=== PATIENT | male | born 1930 | race Caucasian/White ===

== ENCOUNTER 2016-08-05 19:40 | Emergency (ER) | payer OTHER ==
[~2016-08-05 19:40] MED LIST: CARL PO; CLINDAMYCIN HC300 MG PO; DILTIAZEM HCL180 MG PO; LAC PO; LEVAQUIN500 MG PO; PROTONIX40 MG PO
[2016-08-05 20:47] LABS: BASOPHIL % 0.3 % (0-2); PLATELET COUNT 255 x10^3mcL (130-400); RED CELL DISTRIBUTION WIDTH 13.4 % (11.5-14.5)
[2016-08-05 20:51] LABS: CALCIUM 8.2 mg/dL (8.5-10.1); CARBON DIOXIDE 28.1 mmol/L (21-32); CHLORIDE SERUM 105 mmol/L (98-107); CREATININE SERUM 0.9 mg/dL (0.7-1.3); GLUCOSE SERUM 89 mg/dL (74-106); POTASSIUM SERUM 3.8 mmol/L (3.5-5.1); SODIUM SERUM 141 mmol/L (136-145)
[2016-08-05 20:56] LABS: ALKALINE PHOSPHATASE 79 U/L (46-116); ALT/SGPT 9 U/L (16-63); AST/SGOT 12 U/L (15-37); BILIRUBIN TOTAL 0.3 mg/dL (0.20-1.00); TOTAL PROTEIN, SERUM 6.6 g/dL (6.4-8.2)
[2016-08-05 20:57] LABS: ALBUMIN 2.8 g/dL (3.4-5.0)
[2016-08-05 22:24] LABS: microscopic required? YES; urine erythrocyte 2+ (NEGATIVE)
[2016-08-05 22:42] VITALS: BP 134/77
== END 2016-08-05 22:42 | disposition home or self-care (01) ==
LOC: ED 19:40
PROVIDERS: Emergency Medicine
DX: E86.0 Dehydration (principal); G30.9 Alzheimer's disease, unspecified; F02.80 Dementia in other diseases classified elsewhere, unspecified severity, without behavioral disturbance, psychotic disturbance, mood disturbance, and anxiety; I48.91 Unspecified atrial fibrillation; R35.0 Frequency of micturition
CPT/HCPCS: 83880; 87804

== ENCOUNTER 2016-12-14 15:20 | Emergency (ER) | payer MEDICAID, OTHER ==
[2016-12-14 16:38] LABS: BASOPHIL % 0.1 % (0-2); PLATELET COUNT 264 x10^3mcL (130-400)
[2016-12-14 16:45] LABS: RED CELL DISTRIBUTION WIDTH 15.2 % (11.5-14.5)
[2016-12-14 17:02] LABS: ALBUMIN 3.4 g/dL (3.4-5.0); ALKALINE PHOSPHATASE 93 U/L (46-116); ALT/SGPT 14 U/L (16-63); AMYLASE 62 U/L (25-115); AST/SGOT 17 U/L (15-37); BILIRUBIN TOTAL 0.57 mg/dL (0.20-1.00); CALCIUM 8.9 mg/dL (8.5-10.1); CHLORIDE SERUM 105 mmol/L (98-107); CHOLESTEROL 174 mg/dL (<200); GLUCOSE SERUM 87 mg/dL (74-106); HDL CHOLESTEROL 41 mg/dL (40-60); LIPASE 96 IU/L (73-393); POTASSIUM SERUM 3.7 mmol/L (3.5-5.1); SODIUM SERUM 143 mmol/L (136-145); T4(THYROXINE) 9.1 ug/dL (4.7-13.3); TOTAL PROTEIN, SERUM 7.5 g/dL (6.4-8.2)
[2016-12-14 17:46] LABS: microscopic required? NO
[2016-12-14 17:57] LABS: urine erythrocyte NEGATIVE (NEGATIVE)
[2016-12-14 18:09] LABS: AMPHETAMINE QUAL UR NONE DETECTED (NEG <=1000)
[2016-12-14 19:50] VITALS: BP 150/86
== END 2016-12-14 19:50 | disposition home or self-care (01) ==
LOC: ED 15:20
PROVIDERS: Emergency Medicine
DX: R19.7 Diarrhea, unspecified (principal); K56.7 Ileus, unspecified; R64 Cachexia; F03.90 Unspecified dementia, unspecified severity, without behavioral disturbance, psychotic disturbance, mood disturbance, and anxiety; I48.91 Unspecified atrial fibrillation
CPT/HCPCS: 83880; J7030

== ENCOUNTER 2017-09-08 15:56 | Emergency (ER) | payer OTHER ==
[~2017-09-08] VITALS: Ht 172.7 cm; Wt 65.8 kg
[2017-09-08 15:59] VITALS: Ht 172.7 cm; Wt 65.8 kg
[2017-09-08 19:06] VITALS: BP 168/87
== END 2017-09-08 19:06 | disposition home or self-care (01) ==
LOC: ED 15:56
DX: S01.01XA Laceration without foreign body of scalp, initial encounter (principal); W19.XXXA Unspecified fall, initial encounter; Y93.89 Activity, other specified; Y92.89 Other specified places as the place of occurrence of the external cause; Y99.8 Other external cause status
CPT/HCPCS: J2001

== ENCOUNTER 2017-09-14 13:35 | Inpatient (IN) | payer OTHER ==
[~2017-09-14] VITALS: Ht 167.6 cm; Wt 48.1 kg
[2017-09-14 13:41] VITALS: Ht 167.6 cm; Wt 48.1 kg
[2017-09-14 14:51] LABS: UA SPECIFIC GRAVITY 1.015 (1.005-1.035); microscopic required? YES; urine erythrocyte 3+ (NEGATIVE)
[2017-09-14 14:59] LABS: BASOPHIL % 0.3 % (0-2); PLATELET COUNT 379 x10^3mcL (130-400); RED CELL DISTRIBUTION WIDTH 14.1 % (11.5-14.5)
[2017-09-14 15:12] LABS: CALCIUM 8.6 mg/dL (8.5-10.1); CARBON DIOXIDE 30.9 mmol/L (21-32); CHLORIDE SERUM 101 mmol/L (98-107); CREATININE SERUM 1.5 mg/dL (0.7-1.3); GLUCOSE SERUM 133 mg/dL (74-106); POTASSIUM SERUM 3.7 mmol/L (3.5-5.1); SODIUM SERUM 139 mmol/L (136-145)
[2017-09-14 15:27] LABS: ALKALINE PHOSPHATASE 121 U/L (46-116); ALT/SGPT 17 U/L (16-63); AST/SGOT 20 U/L (15-37); BILIRUBIN TOTAL 0.4 mg/dL (0.20-1.00); TOTAL PROTEIN, SERUM 7.6 g/dL (6.4-8.2)
[2017-09-14 15:28] LABS: ALBUMIN 3.2 g/dL (3.4-5.0)
[2017-09-14 15:29] LABS: CK-MB 2.3 ng/mL (0-3.6)
[2017-09-14 17:18] LABS: CHOLESTEROL/HDL RATIO 3.6; MAGNESIUM 2.1 mg/dL (1.8-2.4); PHOSPHOROUS 3.1 mg/dL (2.5-4.9)
[2017-09-14 17:25] LABS: T3 TOTAL 0.93 ng/mL
[2017-09-14 17:27] LABS: FREE T4 1.09 ng/dL (0.76-1.46); T4(THYROXINE) 7.8 ug/dL (4.7-13.3)
[2017-09-14 18:30] VITALS: BP 194/99
[2017-09-14 21:19] VITALS: BP 115/67
[2017-09-15 07:27] LABS: BASOPHIL % 0.2 % (0-2); PLATELET COUNT 276 x10^3mcL (130-400); RED CELL DISTRIBUTION WIDTH 13.9 % (11.5-14.5)
[2017-09-15 07:43] LABS: CARBON DIOXIDE 26.7 mmol/L (21-32); CHLORIDE SERUM 107 mmol/L (98-107); CREATININE SERUM 1.4 mg/dL (0.7-1.3); GLUCOSE SERUM 71 mg/dL (74-106); MAGNESIUM 2.1 mg/dL (1.8-2.4); PHOSPHOROUS 2.9 mg/dL (2.5-4.9); POTASSIUM SERUM 3.8 mmol/L (3.5-5.1); SODIUM SERUM 140 mmol/L (136-145)
[2017-09-15 08:00] VITALS: BP 153/69
[2017-09-15 18:02] VITALS: BP 155/79
[2017-09-15 19:40] VITALS: BP 141/71
[2017-09-16 05:51] VITALS: BP 91/61
[2017-09-16 08:05] LABS: BASOPHIL % 0.6 % (0-2); PLATELET COUNT 259 x10^3mcL (130-400); RED CELL DISTRIBUTION WIDTH 14.2 % (11.5-14.5)
[2017-09-16 08:16] LABS: CALCIUM 8.1 mg/dL (8.5-10.1); CARBON DIOXIDE 27.2 mmol/L (21-32); CHLORIDE SERUM 106 mmol/L (98-107); CREATININE SERUM 1.4 mg/dL (0.7-1.3); GLUCOSE SERUM 79 mg/dL (74-106); MAGNESIUM 1.8 mg/dL (1.8-2.4); PHOSPHOROUS 2.8 mg/dL (2.5-4.9); SODIUM SERUM 141 mmol/L (136-145)
[2017-09-16 17:58] VITALS: BP 134/71
[2017-09-16 19:48] VITALS: BP 136/69
[2017-09-16 20:52] VITALS: BP 129/69
[2017-09-17 05:57] LABS: BASOPHIL % 0.5 % (0-2); PLATELET COUNT 230 x10^3mcL (130-400); RED CELL DISTRIBUTION WIDTH 13.6 % (11.5-14.5)
[2017-09-17 06:07] LABS: CALCIUM 7.5 mg/dL (8.5-10.1); CARBON DIOXIDE 28.4 mmol/L (21-32); CHLORIDE SERUM 110 mmol/L (98-107); CREATININE SERUM 1.4 mg/dL (0.7-1.3); GLUCOSE SERUM 81 mg/dL (74-106); POTASSIUM SERUM 4.1 mmol/L (3.5-5.1); SODIUM SERUM 142 mmol/L (136-145)
[2017-09-17 06:08] VITALS: BP 120/69
[2017-09-17 10:35] VITALS: BP 121/58
[2017-09-17 22:58] VITALS: BP 115/61
[2017-09-18 06:20] VITALS: BP 121/68
[2017-09-18 06:24] LABS: PLATELET COUNT 279 x10^3mcL (130-400); RED CELL DISTRIBUTION WIDTH 13.8 % (11.5-14.5)
[2017-09-18 06:34] LABS: CARBON DIOXIDE 24.7 mmol/L (21-32); CHLORIDE SERUM 106 mmol/L (98-107); CREATININE SERUM 1.4 mg/dL (0.7-1.3); GLUCOSE SERUM 107 mg/dL (74-106); MAGNESIUM 1.8 mg/dL (1.8-2.4); PHOSPHOROUS 4.2 mg/dL (2.5-4.9); POTASSIUM SERUM 4.5 mmol/L (3.5-5.1); SODIUM SERUM 140 mmol/L (136-145)
[2017-09-18 06:41] LABS: BASOPHIL % 0 % (0-2)
[2017-09-18 08:30] VITALS: BP 122/61
[2017-09-18 13:24] VITALS: BP 122/61
[2017-09-18] MEDS ORDERED: SULFAMETHOXAZOL1 TA3 PO (14:06)
[2017-09-18] MEDS ORDERED: TROSPIUM CHLORI20 MG PO (14:08)
[2017-09-18] MEDS ORDERED: LAC PO (14:09)
[2017-09-18] MEDS ORDERED: APAP/HYDROCODON1 T13 PO (14:09)
== END 2017-09-18 19:55 | DRG 853 ==
LOC: ED 13:35 → DU 16:54 → MU 16:54 → DU 18:14 → MU 09-16 08:45
PROVIDERS: Emergency Medicine; Family Medicine; Urology
PROC: 0TBB8ZZ Excision of Bladder, Via Natural or Artificial Opening Endoscopic (ICD-10-PCS; 2017-09-17)
PROC: 0TCB8ZZ Extirpation of Matter from Bladder, Via Natural or Artificial Opening Endoscopic (ICD-10-PCS; principal; 2017-09-17 19:30)
DX: A41.9 Sepsis, unspecified organism (principal); N17.0 Acute kidney failure with tubular necrosis; E43 Unspecified severe protein-calorie malnutrition; N13.30 Unspecified hydronephrosis; Z68.1 Body mass index [BMI] 19.9 or less, adult; N39.0 Urinary tract infection, site not specified; J98.11 Atelectasis; D49.4 Neoplasm of unspecified behavior of bladder; N32.89 Other specified disorders of bladder; R31.0 Gross hematuria; N40.0 Benign prostatic hyperplasia without lower urinary tract symptoms; I10 Essential (primary) hypertension; I48.0 Paroxysmal atrial fibrillation; E02 Subclinical iodine-deficiency hypothyroidism; E78.5 Hyperlipidemia, unspecified; D64.9 Anemia, unspecified; G30.9 Alzheimer's disease, unspecified; F02.80 Dementia in other diseases classified elsewhere, unspecified severity, without behavioral disturbance, psychotic disturbance, mood disturbance, and anxiety; D69.6 Thrombocytopenia, unspecified; D72.828 Other elevated white blood cell count; F43.0 Acute stress reaction; E87.8 Other disorders of electrolyte and fluid balance, not elsewhere classified; E83.51 Hypocalcemia; K57.90 Diverticulosis of intestine, part unspecified, without perforation or abscess without bleeding; I08.0 Rheumatic disorders of both mitral and aortic valves; N28.1 Cyst of kidney, acquired
CPT/HCPCS: 83880; 84439; 97110-GP; 97116-GP; 97530-GP; J0360; J0690; J1170; J1956; J3010; J7030; Q0092

== ENCOUNTER 2017-10-15 19:21 | Inpatient (IN) | payer OTHER ==
[~2017-10-15] VITALS: Ht 167.6 cm; Wt 49.1 kg
[~2017-10-15 19:21] MED LIST changes: +APAP/HYDROCODON1 T13 PO; +SULFAMETHOXAZOL1 TA3 PO; +TROSPIUM CHLORI20 MG PO
[2017-10-15 19:30] VITALS: Ht 167.6 cm; Wt 49.1 kg
[2017-10-15 21:17] LABS: PLATELET COUNT 415 x10^3mcL (130-400); RED CELL DISTRIBUTION WIDTH 14.7 % (11.5-14.5)
[2017-10-15 21:25] LABS: ALKALINE PHOSPHATASE 141 U/L (46-116); ALT/SGPT 14 U/L (16-63); AST/SGOT 20 U/L (15-37); BILIRUBIN TOTAL 0.6 mg/dL (0.20-1.00); CALCIUM 10.1 mg/dL (8.5-10.1); CARBON DIOXIDE 21.3 mmol/L (21-32); CHLORIDE SERUM 121 mmol/L (98-107); GLUCOSE SERUM 107 mg/dL (74-106); TOTAL PROTEIN, SERUM 7.6 g/dL (6.4-8.2)
[2017-10-15 21:28] LABS: BAND NEUTROPHIL 5 % (0-10); MONOCYTE 5 % (0-7); SEGMENTED NEUTROPHILS 85 % (37-75)
[2017-10-15 21:29] LABS: rbc morphology (normal/abnorm) ABNORMAL (NORMAL)
[2017-10-15 21:30] LABS: PLATELET MORPHOLOGY PLATELETS NORMAL
[2017-10-15 21:32] LABS: CK-MB 4.3 ng/mL (0-3.6)
[2017-10-15 22:02] LABS: ALBUMIN 2.7 g/dL (3.4-5.0)
[2017-10-15 22:06] LABS: CREATININE SERUM 5.9 mg/dL (0.7-1.3); POTASSIUM SERUM 5.6 mmol/L (3.5-5.1); SODIUM SERUM 163 mmol/L (136-145)
[2017-10-15 23:57] LABS: microscopic required? YES; urine erythrocyte 3+ (NEGATIVE)
[2017-10-16 00:01] VITALS: BP 121/83
[2017-10-16 02:01] VITALS: BP 114/54
[2017-10-16 02:16] LABS: CARBON DIOXIDE 24.4 mmol/L (21-32); CHLORIDE SERUM 128 mmol/L (98-107); POTASSIUM SERUM 5.4 mmol/L (3.5-5.1)
[2017-10-16 02:20] LABS: GLUCOSE SERUM 49 mg/dL (74-106); SODIUM SERUM 164 mmol/L (136-145)
[2017-10-16 02:21] LABS: CREATININE SERUM 5.6 mg/dL (0.7-1.3)
[2017-10-16 02:42] LABS: CHOLESTEROL/HDL RATIO 3.9; MAGNESIUM 3.5 mg/dL (1.8-2.4); PHOSPHOROUS 6.3 mg/dL (2.5-4.9)
[2017-10-16 05:26] VITALS: BP 103/54
[2017-10-16 07:31] LABS: CALCIUM 8.9 mg/dL (8.5-10.1); CARBON DIOXIDE 22.1 mmol/L (21-32); CHLORIDE SERUM 127 mmol/L (98-107); GLUCOSE SERUM 92 mg/dL (74-106); POTASSIUM SERUM 4.6 mmol/L (3.5-5.1)
[2017-10-16 07:35] LABS: CREATININE SERUM 5.2 mg/dL (0.7-1.3); SODIUM SERUM 165 mmol/L (136-145)
[2017-10-16 07:45] LABS: FREE T4 0.9 ng/dL (0.76-1.46); FREE THYROXINE INDEX 1.9 ug/dL (1.4-4.5); T4(THYROXINE) 4.7 ug/dL (4.7-13.3)
[2017-10-16 08:37] VITALS: BP 123/55
[2017-10-16 08:54] LABS: T3 TOTAL 0.57 ng/mL
[2017-10-16 09:06] LABS: PLATELET COUNT 340 x10^3mcL (130-400)
[2017-10-16 09:12] LABS: RED CELL DISTRIBUTION WIDTH 15.1 % (11.5-14.5)
[2017-10-16 12:59] LABS: CALCIUM 8.4 mg/dL (8.5-10.1); CARBON DIOXIDE 22.7 mmol/L (21-32); CHLORIDE SERUM 130 mmol/L (98-107); GLUCOSE SERUM 79 mg/dL (74-106); POTASSIUM SERUM 4.7 mmol/L (3.5-5.1)
[2017-10-16 13:06] LABS: SODIUM SERUM 167 mmol/L (136-145)
[2017-10-16 13:14] VITALS: BP 128/70
[2017-10-16 14:29] LABS: BAND NEUTROPHIL 1 % (0-10); MONOCYTE 2 % (0-7); SEGMENTED NEUTROPHILS 91 % (37-75)
[2017-10-16 14:30] LABS: PLATELET MORPHOLOGY N; rbc morphology (normal/abnorm) ABNORMAL (NORMAL)
[2017-10-16 17:06] LABS: CALCIUM 8.6 mg/dL (8.5-10.1); CARBON DIOXIDE 23.7 mmol/L (21-32); CHLORIDE SERUM 129 mmol/L (98-107); GLUCOSE SERUM 103 mg/dL (74-106); POTASSIUM SERUM 4.6 mmol/L (3.5-5.1)
[2017-10-16 17:14] VITALS: BP 80/32
[2017-10-16 17:27] LABS: SODIUM SERUM 166 mmol/L (136-145)
[2017-10-16] MEDS ORDERED: ROC1I IV (17:47)
[2017-10-16] MEDS ORDERED: NOVAPLUS ZOSYN50 M1 IV (17:47)
[2017-10-16] MEDS ORDERED: ZOFI IV (17:48)
[2017-10-16] MEDS ORDERED: LAC PO (17:48)
[2017-10-16] MEDS ORDERED: MOR4I IV (17:48)
[2017-10-17 12:47] VITALS: BP 80/32
== END 2017-10-17 15:02 | disposition hospice, home (50) | DRG 871 ==
LOC: ED 19:21 → DU 22:59
PROVIDERS: Emergency Medicine; Family Medicine; Student in an Organized Health Care Education/Training Program
DX: A41.9 Sepsis, unspecified organism (principal); G93.41 Metabolic encephalopathy; E43 Unspecified severe protein-calorie malnutrition; N17.0 Acute kidney failure with tubular necrosis; E87.0 Hyperosmolality and hypernatremia; Z68.1 Body mass index [BMI] 19.9 or less, adult; G30.9 Alzheimer's disease, unspecified; R65.20 Severe sepsis without septic shock; F02.80 Dementia in other diseases classified elsewhere, unspecified severity, without behavioral disturbance, psychotic disturbance, mood disturbance, and anxiety; E87.5 Hyperkalemia; E86.0 Dehydration; Z66 Do not resuscitate; R62.7 Adult failure to thrive; I48.0 Paroxysmal atrial fibrillation; L89.152 Pressure ulcer of sacral region, stage 2; D64.9 Anemia, unspecified; N30.90 Cystitis, unspecified without hematuria; C67.9 Malignant neoplasm of bladder, unspecified
CPT/HCPCS: 36600; 82962; 83880; 84439; G0378; J0696; J1200; J1815; J1885; J2270; J2543; J2800; J3490; J7030; J7040; J7060; J7070